=== PATIENT | female | born 1940 | race Hispanic/Latino ===

== ENCOUNTER 2017-09-03 07:24 | Day surgery (SDC) | payer MEDICARE, BC ==
[2017-09-03] MEDS ORDERED: Lactated Ringer's 500 ML IV ONE ×2 (09:35)
[2017-09-03] MEDS ORDERED: Propofol 10 mg/ml Inj (20 ML) ONE ×2 (09:37→10:02)
[2017-09-03] MEDS ORDERED: Lidocaine Hydrochloride 5 ML INJ ONE (09:38)
[2017-09-03 10:37] VITALS: TEMP 98; O2SAT 100
[2017-09-03 12:37] VITALS: BP 146/77; PULSE 67; RESP 18
== END 2017-09-03 11:56 | disposition home or self-care (01) ==
LOC: C.ENDO 07:24
PROVIDERS: ATTEND Internal Medicine Gastroenterology
DX: Z12.11 Encounter for screening for malignant neoplasm of colon (principal); K63.5 Polyp of colon; K64.1 Second degree hemorrhoids; K57.30 Diverticulosis of large intestine without perforation or abscess without bleeding; E11.9 Type 2 diabetes mellitus without complications; E78.5 Hyperlipidemia, unspecified; I10 Essential (primary) hypertension; Z79.84 Long term (current) use of oral hypoglycemic drugs; Z79.82 Long term (current) use of aspirin; Z95.0 Presence of cardiac pacemaker; Z95.2 Presence of prosthetic heart valve
CPT/HCPCS: 45380; 45381; 45385; 82948; 88305; J2704; J7120

== ENCOUNTER 2017-10-02 06:26 | Day surgery (SDC) | payer MEDICARE, BC ==
[2017-10-02] MEDS ORDERED: Lactated Ringer's 1,000 ML IV ONE (08:18)
--- NOTE | 2017-10-02 08:18 | CP.SDSHP ---
Same Day Surgery H & P - History Proposed Procedure: EGD Pre-Op Diagnosis: weaver's esophagus - Previous Medical/Surgical History Cardiac: Hypertension Endocrine/Metabolic: Diabetes - Allergies Allergies: Allergies JOSUE Inhibitors Adverse Reaction (Verified 09/03/17 08:38) COUGH - Physical Exam General Appearance: NAD Vital Signs: Vital Signs 10/02/17 06:51 Temperature 97 F L Pulse Rate 68 Respiratory 18 Rate Blood Pressure 137/74 O2 Sat by Pulse 99 Oximetry Mental Status: Alert & Oriented x3 Neuro: WNL Heart: WNL Lungs: WNL GI: WNL - {Optional Preform as Required} Abdomen: WNL - Impression Pt. Evaluated Today:Candidate for Anesthesia & Procedure: Yes - Date & Time Date: 10/02/17 Time: :18 Short Stay Discharge - Short Stay Discharge Admitting Diagnosis/Reason for Visit: WEAVER'S ESOPHAGUS Disposition: HOME/ ROUTINE
[2017-10-02] MEDS ORDERED: Propofol 10 mg/ml Inj (20 ML) ONE (08:19)
[2017-10-02 08:24] VITALS: O2SAT 100
[2017-10-02] MEDS ORDERED: Etomidate 20 mg/10ml Inj IV ONE (08:48)
[2017-10-02 10:07] VITALS: RESP 14; TEMP 97.1
[2017-10-02 10:08] VITALS: BP 138/82; PULSE 70
== END 2017-10-02 09:50 | disposition home or self-care (01) ==
LOC: C.ENDO 06:26
PROVIDERS: ATTEND Internal Medicine Gastroenterology
DX: K22.70 Barrett's esophagus without dysplasia (principal); E11.9 Type 2 diabetes mellitus without complications; I10 Essential (primary) hypertension

== ENCOUNTER 2018-09-22 11:08 | Outpatient (CLI) | payer MEDICARE, BC | END 2018-09-22 11:09 | disposition home or self-care (01) | LOC: C.DEXAIC 11:08 ==